=== PATIENT | male | born 1940 | race Caucasian/White ===

== ENCOUNTER → 2018-03-25 | Outpatient (CLI) | payer MEDICARE, OTHER ==
[~2018-03-25] MED LIST: ALLO100 PO; ASPI81CH PO; B-12250 MCG; BENZ100A PO; BUDE200IP; BUPR100; BUPR150ER PO; Bentyl10 MG; ESCI5 PO; ESOM20; EZET10-20; EZET10-20 PO; FISH1000 PO; FORM12IH; Fibercon625 MG PO; HYDACE5 PO; LAVAP17G PO; LORA.5 PO; LORA10ER; LOSA25 PO; MULVITMIND PO; MULVITMINF PO; NOVAFERRUM 5050 MG PO; OMEG1CAP30; ONDA8 PO; OXYACE5T PO; Oxycodone-Apap1 EAC3 PO; PRED20 PO; PROC10 PO; Prednisone50 MG PO; RANI150; Robaxin500 MG PO; TRIA55OI; TRIA80TC; TRIAOIA; VERAPAMIL PO; ZAFI20
== END | disposition home or self-care (01) ==
LOC: LAB SHORT 10:25 → LAB EV 10:25
DX: L03.032 Cellulitis of left toe (principal)
CPT/HCPCS: 87070; 87077; 87147; 87186; 87205

== ENCOUNTER → 2020-09-18 | Outpatient (CLI) | payer MEDICARE, OTHER ==
[~2020-09-18] MED LIST changes: +PLAVIX75 MG
[2020-09-18 14:31] LABS: Source, Urine Clean Catch
[2020-09-18 15:44] LABS: Appearance, Urine Clear (Clear); Bilirubin, Urine Neg (Neg); Blood, Urine Neg (Neg); Color, Urine Yellow (P-Yellow); Glucose Qualitative, Urine Neg (Neg); Ketones, Urine Neg (Neg); Leukocyte Esterase, Urine Neg (Neg); Nitrite, Urine Neg (Neg); Protein, Urine Neg (Neg); Urobilinogen, Urine NORM (Normal)
== END | disposition home or self-care (01) ==
LOC: LAB SHORT 11:08 → LAB 11:08 → EDSTATUS 09-17 16:05 → LAB FUT 09-17 16:05
PROVIDERS: Internal Medicine
DX: N18.31 Chronic kidney disease, stage 3a (principal)
CPT/HCPCS: 81003

== ENCOUNTER 2020-11-26 13:45 | Day surgery (SDC) | payer MEDICARE, OTHER ==
[~2020-11-26] VITALS: Ht 177.8 cm; Wt 78.4 kg
[2020-11-26] MEDS ORDERED: BREO ELLIPTA 21 EAC1 IH (14:15)
== END 2020-11-26 17:00 | disposition home or self-care (01) ==
LOC: ORSCSDS 13:45
PROVIDERS: Podiatrist Foot & Ankle Surgery
PROC: 0SGM04Z Fusion of Right Metatarsal-Phalangeal Joint with Internal Fixation Device, Open Approach (ICD-10-PCS; principal; 2020-11-26 15:45)
DX: M20.11 Hallux valgus (acquired), right foot (principal); M20.5X1 Other deformities of toe(s) (acquired), right foot; M79.671 Pain in right foot; I10 Essential (primary) hypertension; I48.91 Unspecified atrial fibrillation; Z79.01 Long term (current) use of anticoagulants; J45.909 Unspecified asthma, uncomplicated; Z79.899 Other long term (current) drug therapy
CPT/HCPCS: A9270; C1713; J0171; J0690; J1100; J2250; J2370; J2405; J2704; J3010; J7120

== ENCOUNTER 2021-08-20 21:55 | Emergency (ER) | payer MEDICARE, OTHER ==
[~2021-08-20] VITALS: Ht 177.8 cm; Wt 80.3 kg
[~2021-08-20 21:55] MED LIST changes: +BREO ELLIPTA 21 EAC1 IH
[2021-08-20] MEDS ORDERED: BUPR75 (22:07)
[2021-08-20] MEDS ORDERED: Norco 5-325 Ta1 EACH PO (23:49)
== END 2021-08-20 23:55 | disposition home or self-care (01) ==
LOC: ER 21:55
DX: S42.201A Unspecified fracture of upper end of right humerus, initial encounter for closed fracture (principal); I10 Essential (primary) hypertension; J45.909 Unspecified asthma, uncomplicated; Z87.891 Personal history of nicotine dependence; Z79.899 Other long term (current) drug therapy; W18.30XA Fall on same level, unspecified, initial encounter
CPT/HCPCS: 73030; 96374; 96375; 99283-25; A9270; J2405; J3010

== ENCOUNTER 2021-11-18 12:57 | Day surgery (SDC) | payer MEDICARE, OTHER ==
[~2021-11-18] VITALS: Ht 177.8 cm; Wt 78.0 kg
[~2021-11-18 12:57] MED LIST changes: +BUPR75; +Norco 5-325 Ta1 EACH PO
== END 2021-11-18 14:52 | disposition home or self-care (01) ==
LOC: ORSCSDS 12:57
PROVIDERS: Internal Medicine Gastroenterology
PROC: 0DB58ZX Excision of Esophagus, Via Natural or Artificial Opening Endoscopic, Diagnostic (ICD-10-PCS; principal; 2021-11-18 14:15)
PROC: 0D757ZZ Dilation of Esophagus, Via Natural or Artificial Opening (ICD-10-PCS; principal; 2021-11-18 14:15)
DX: K22.70 Barrett's esophagus without dysplasia (principal); R13.10 Dysphagia, unspecified; K44.9 Diaphragmatic hernia without obstruction or gangrene; I10 Essential (primary) hypertension; Z87.891 Personal history of nicotine dependence; Z79.899 Other long term (current) drug therapy
CPT/HCPCS: 88305; J2704; J7120

== ENCOUNTER → 2022-05-27 | Outpatient (CLI) | payer MEDICARE, OTHER ==
[2022-05-27 11:45] LABS: BASOPHILS ABSOLUTE AUTO 0.05 K/mm3 (0.00-0.23); BASOPHILS PERCENT AUTO 1 % (0-2); EOSINOPHILS ABSOLUTE AUTO 0.73 K/mm3 (0.00-0.68); EOSINOPHILS PERCENT AUTO 7 % (0-6); Hematocrit 39.6 % (37.0-53.0); Hemoglobin 12.8 g/dL (13.5-17.5); IMMATURE GRAN ABSOLUTE AUTO 0.04 K/mm3 (0.00-0.10); IMMATURE GRAN PERCENT AUTO 0 % (0-1); LYMPHOCYTES ABSOLUTE AUTO 2.97 K/mm3 (0.84-5.20); LYMPHOCYTES PERCENT AUTO 28 % (21-46); MONOCYTES ABSOLUTE AUTO 0.94 K/mm3 (0.16-1.47); MONOCYTES PERCENT AUTO 9 % (4-13); Mean Corpuscular HGB 31.2 pg (26.0-34.0); Mean Corpuscular HGB Conc 32.3 g/dL (31.5-36.5); Mean Corpuscular Volume 97 fL (80-100); Mean Platelet Volume 10.3 fL (9.1-12.4); NEUTROPHILS ABSOLUTE AUTO 5.72 K/mm3 (1.96-9.15); NEUTROPHILS PERCENT AUTO 55 % (41-73); Platelet Count 261 K/mm3 (150-400); RDW Coefficient Variation 14.6 % (11.7-14.2); RDW Standard Deviation 51.6 fL (35.1-46.3); White Blood Cell Count 10.45 K/mm3 (4.00-11.30)
== END | disposition home or self-care (01) ==
LOC: LAB SHORT 11:05 → LAB 11:05
PROVIDERS: Registered Nurse Oncology
DX: N18.9 Chronic kidney disease, unspecified (principal); D63.1 Anemia in chronic kidney disease; M81.0 Age-related osteoporosis without current pathological fracture; C82.93 Follicular lymphoma, unspecified, intra-abdominal lymph nodes
CPT/HCPCS: 83615; 85025

== ENCOUNTER → 2023-11-12 | Outpatient (CLI) | payer MEDICARE, OTHER ==
[~2023-11-12] MED LIST changes: +HYDR1TAB94 PO; +Naprosyn500 MG PO
[2023-11-12 15:31] LABS: BASOPHILS ABSOLUTE AUTO 0.07 K/mm3 (0.00-0.23); BASOPHILS PERCENT AUTO 1 % (0-2); EOSINOPHILS ABSOLUTE AUTO 0.51 K/mm3 (0.00-0.68); EOSINOPHILS PERCENT AUTO 4 % (0-6); Hematocrit 42.1 % (37.0-53.0); Hemoglobin 13.6 g/dL (13.5-17.5); IMMATURE GRAN ABSOLUTE AUTO 0.06 K/mm3 (0.00-0.10); IMMATURE GRAN PERCENT AUTO 0 % (0-1); LYMPHOCYTES ABSOLUTE AUTO 2.59 K/mm3 (0.84-5.20); LYMPHOCYTES PERCENT AUTO 19 % (21-46); MONOCYTES ABSOLUTE AUTO 0.82 K/mm3 (0.16-1.47); MONOCYTES PERCENT AUTO 6 % (4-13); Mean Corpuscular HGB 30.7 pg (26.0-34.0); Mean Corpuscular HGB Conc 32.3 g/dL (31.5-36.5); Mean Corpuscular Volume 95 fL (80-100); Mean Platelet Volume 9.6 fL (9.1-12.4); NEUTROPHILS ABSOLUTE AUTO 9.66 K/mm3 (1.96-9.15); NEUTROPHILS PERCENT AUTO 71 % (41-73); Platelet Count 328 K/mm3 (150-400); RDW Coefficient Variation 14.5 % (11.7-14.2); RDW Standard Deviation 50.4 fL (35.1-46.3); Red Blood Cell Count 4.43 M/mm3 (4.30-5.90); White Blood Cell Count 13.71 K/mm3 (4.00-11.30)
[2023-11-12 15:44] LABS: Albumin, Blood 3.9 g/dL (3.4-5.0); Albumin/Globulin Ratio 0.9 (0.8-1.8); Bilirubin, Total 0.4 mg/dL (0.1-1.0); Bun/Creatinine Ratio 18.4 (12.0-20.0); Calcium, Blood 9.5 mg/dL (8.5-10.1); Creatinine, Blood 1.36 mg/dL (0.60-1.20); Globulin, Blood 4.2 g/dL (2.2-4.0); Potassium, Blood 3.9 mmol/L (3.5-5.5); Total Protein, Blood 8.1 g/dL (6.4-8.2)
== END ==
LOC: LAB SHORT 15:29
PROVIDERS: Physician Assistant
DX: R10.31 Right lower quadrant pain (principal)
CPT/HCPCS: 80053; 85025

== ENCOUNTER 2023-11-14 09:49 | Emergency (ER) | payer MEDICARE, OTHER ==
[~2023-11-14] VITALS: Ht 177.8 cm; Wt 78.5 kg
[~2023-11-14 09:49] MED LIST changes: -HYDR1TAB94 PO; -Naprosyn500 MG PO
[2023-11-14 10:23] VITALS: BP 128/80
[2023-11-14] MEDS ORDERED: Naprosyn500 MG PO ×2 (10:35→12:14)
[2023-11-14] MEDS ORDERED: HYDR1TAB94 PO ×2 (10:35→12:14)
== END 2023-11-14 10:59 | disposition home or self-care (01) ==
LOC: ER 09:49
DX: M25.551 Pain in right hip (principal); M25.552 Pain in left hip; Z79.899 Other long term (current) drug therapy; J45.909 Unspecified asthma, uncomplicated; I10 Essential (primary) hypertension; Z87.891 Personal history of nicotine dependence
CPT/HCPCS: 99283; A9270

== ENCOUNTER 2024-11-02 15:46 | Emergency (ER) | payer MEDICARE, OTHER ==
[~2024-11-02] VITALS: Ht 172.7 cm; Wt 80.3 kg
[~2024-11-02 15:46] MED LIST changes: +HYDR1TAB94 PO; +Naprosyn500 MG PO
[2024-11-02 17:04] LABS: BASOPHILS ABSOLUTE AUTO 0.07 K/mm3 (0.00-0.23); BASOPHILS PERCENT AUTO 1 % (0-2); EOSINOPHILS ABSOLUTE AUTO 0.41 K/mm3 (0.00-0.68); EOSINOPHILS PERCENT AUTO 3 % (0-6); Hematocrit 37.9 % (37.0-53.0); Hemoglobin 12.6 g/dL (13.5-17.5); IMMATURE GRAN ABSOLUTE AUTO 0.05 K/mm3 (0.00-0.10); IMMATURE GRAN PERCENT AUTO 0 % (0-1); LYMPHOCYTES ABSOLUTE AUTO 2.44 K/mm3 (0.84-5.20); LYMPHOCYTES PERCENT AUTO 19 % (21-46); MONOCYTES ABSOLUTE AUTO 0.85 K/mm3 (0.16-1.47); MONOCYTES PERCENT AUTO 7 % (4-13); Mean Corpuscular HGB Conc 33.2 g/dL (31.5-36.5); Mean Corpuscular Volume 93 fL (80-100); Mean Platelet Volume 9.6 fL (9.1-12.4); NEUTROPHILS ABSOLUTE AUTO 9.16 K/mm3 (1.96-9.15); NEUTROPHILS PERCENT AUTO 71 % (41-73); Platelet Count 280 K/mm3 (150-400); RDW Coefficient Variation 13.8 % (11.7-14.2); RDW Standard Deviation 47.3 fL (35.1-46.3); Red Blood Cell Count 4.07 M/mm3 (4.30-5.90); White Blood Cell Count 12.98 K/mm3 (4.00-11.30)
[2024-11-02 17:30] LABS: Albumin, Blood 3.5 g/dL (3.4-5.0); Albumin/Globulin Ratio 0.9 (0.8-1.8); Bilirubin, Total 0.4 mg/dL (0.1-1.0); Bun/Creatinine Ratio 19.1 (12.0-20.0); Calcium, Blood 9.5 mg/dL (8.5-10.1); Creatinine, Blood 1.36 mg/dL (0.60-1.20); Globulin, Blood 3.7 g/dL (2.2-4.0); Total Protein, Blood 7.2 g/dL (6.4-8.2)
[2024-11-02 22:16] LABS: Source, Urine Clean Catch
[2024-11-02 22:29] LABS: Appearance, Urine Clear (Clear); Bilirubin, Urine Neg (Neg); Blood, Urine Neg (Neg); Color, Urine Yellow (P-Yellow); Glucose Qualitative, Urine Neg (Neg); Ketones, Urine Neg (Neg); Leukocyte Esterase, Urine Neg (Neg); Nitrite, Urine Neg (Neg); Protein, Urine Neg (Neg); Specific Gravity, Urine 1.015 (1.003-1.022); Urobilinogen, Urine NORM (Normal)
[2024-11-02 23:42] VITALS: BP 149/83
== END 2024-11-02 23:44 | disposition home or self-care (01) ==
LOC: ER 15:46
PROVIDERS: Student in an Organized Health Care Education/Training Program
DX: R55 Syncope and collapse (principal); J45.909 Unspecified asthma, uncomplicated; I10 Essential (primary) hypertension; Z79.899 Other long term (current) drug therapy; Z87.891 Personal history of nicotine dependence
CPT/HCPCS: 80053; 81003; 84484; 85025; 93005; 93010; 99284-25

== ENCOUNTER → 2025-03-06 | Outpatient (CLI) | payer MEDICARE, OTHER ==
[2025-03-06 14:15] LABS: BASOPHILS ABSOLUTE AUTO 0.04 K/mm3 (0.00-0.23); BASOPHILS PERCENT AUTO 0 % (0-2); EOSINOPHILS ABSOLUTE AUTO 0.49 K/mm3 (0.00-0.68); EOSINOPHILS PERCENT AUTO 5 % (0-6); Hematocrit 34.2 % (37.0-53.0); Hemoglobin 11.1 g/dL (13.5-17.5); IMMATURE GRAN ABSOLUTE AUTO 0.03 K/mm3 (0.00-0.10); IMMATURE GRAN PERCENT AUTO 0 % (0-1); LYMPHOCYTES ABSOLUTE AUTO 2.45 K/mm3 (0.84-5.20); LYMPHOCYTES PERCENT AUTO 27 % (21-46); MONOCYTES ABSOLUTE AUTO 1.01 K/mm3 (0.16-1.47); MONOCYTES PERCENT AUTO 11 % (4-13); Mean Corpuscular HGB 29.8 pg (26.0-34.0); Mean Corpuscular HGB Conc 32.5 g/dL (31.5-36.5); Mean Corpuscular Volume 92 fL (80-100); Mean Platelet Volume 9.8 fL (9.1-12.4); NEUTROPHILS ABSOLUTE AUTO 5.08 K/mm3 (1.96-9.15); NEUTROPHILS PERCENT AUTO 56 % (41-73); Platelet Count 232 K/mm3 (150-400); RDW Standard Deviation 54.1 fL (35.1-46.3); Red Blood Cell Count 3.72 M/mm3 (4.30-5.90)
[2025-03-06 15:28] LABS: Albumin, Blood 3.4 g/dL (3.4-5.0); Albumin/Globulin Ratio 1.1 (0.8-1.8); Bilirubin, Total 0.5 mg/dL (0.1-1.0); Calcium, Blood 8.7 mg/dL (8.5-10.1); Creatinine, Blood 1.35 mg/dL (0.60-1.20); Globulin, Blood 3.2 g/dL (2.2-4.0); Potassium, Blood 3.6 mmol/L (3.5-5.5); Thyroid Stimulating Hormone 2.04 uIU/mL (0.360-4.800); Total Protein, Blood 6.6 g/dL (6.4-8.2)
== END ==
LOC: LAB 14:06 → LAB SHORT 14:06
PROVIDERS: Family Medicine
DX: R41.3 Other amnesia (principal)
CPT/HCPCS: 80053; 82607; 82746; 84443; 85025

== ENCOUNTER 2025-10-12 14:00 | Emergency (ER) | payer MEDICARE, OTHER ==
[~2025-10-12] VITALS: Ht 175.3 cm; Wt 72.6 kg
[~2025-10-12 14:00] MED LIST changes: -LORA10ER; +LORA10ER PO; -PLAVIX75 MG; +PLAVIX75 MG PO; -ZAFI20; +ZAFI20 PO
[2025-10-12] MEDS ORDERED: Ketorolac Tromethamine 15mg Vial IM ONE ×2 (14:15→19:55)
[2025-10-12 18:51] VITALS: BP 184/90
[2025-10-12] MEDS ORDERED: PANT40 PO (19:01)
[2025-10-12] MEDS ORDERED: EZET10 PO (19:02)
[2025-10-12] MEDS ORDERED: ESCI10 PO (19:02)
[2025-10-12] MEDS ORDERED: ALBU90OI INH (19:03)
[2025-10-12] MEDS ORDERED: WIXELA 250-501 EAC1 INH (19:03)
[2025-10-12] MEDS ORDERED: ZOCOR20 MG PO (19:06)
[2025-10-12] MEDS ORDERED: DULCOLAX400 MG/5 M PO (19:06)
[2025-10-12] MEDS ORDERED: LOPERAMIDE1 MG/7.10 (19:07)
[2025-10-12] MEDS ORDERED: VITAMIN B12500 MCG PO (19:07)
[2025-10-12] MEDS ORDERED: DONEPEZIL HCL10 MG PO (19:07)
[2025-10-12] MEDS ORDERED: FOLI1 PO (19:07)
[2025-10-12] MEDS ORDERED: CALCIUM 500 MG1 EAC2 PO (19:08)
[2025-10-12] MEDS ORDERED: THERA-D2000 UNIT PO (19:08)
[2025-10-12] MEDS ORDERED: ACETAMINOPHEN500 MG PO (19:09)
[2025-10-16] MEDS ORDERED: IBUP400 PO (02:56)
== END 2025-10-12 20:14 | disposition home or self-care (01) ==
LOC: ER 14:00
DX: S62.617A Displaced fracture of proximal phalanx of left little finger, initial encounter for closed fracture (principal); S60.812A Abrasion of left wrist, initial encounter; Z79.899 Other long term (current) drug therapy; Z87.891 Personal history of nicotine dependence; Z88.8 Allergy status to other drugs, medicaments and biological substances; W18.30XA Fall on same level, unspecified, initial encounter
CPT/HCPCS: 26725; 73030; 73120; 73130; 96372-59; 99284-25; A9270; J1885

== ENCOUNTER 2025-10-14 20:23 | Inpatient (IN) | payer MEDICARE, OTHER ==
[~2025-10-14] VITALS: Ht 182.9 cm; Wt 79.6 kg
[~2025-10-14 20:23] MED LIST changes: +ACETAMINOPHEN500 MG PO; +ALBU90OI INH; +CALCIUM 500 MG1 EAC2 PO; +DONEPEZIL HCL10 MG PO; +DULCOLAX400 MG/5 M PO; +ESCI10 PO; +EZET10 PO; +FOLI1 PO; +LOPERAMIDE1 MG/7.10; +PANT40 PO; +THERA-D2000 UNIT PO; +VITAMIN B12500 MCG PO; +WIXELA 250-501 EAC1 INH; +ZOCOR20 MG PO
[2025-10-14] MEDS ORDERED: Ipratropium/Albuterol SulF 2.5-0.5MG/3 ML Amp INH PRN (20:45)
[2025-10-14 20:53] LABS: BASOPHILS ABSOLUTE AUTO 0.05 K/mm3 (0.00-0.23); BASOPHILS PERCENT AUTO 0 % (0-2); EOSINOPHILS ABSOLUTE AUTO 0.26 K/mm3 (0.00-0.68); EOSINOPHILS PERCENT AUTO 2 % (0-6); Hematocrit 38.7 % (37.0-53.0); Hemoglobin 12.7 g/dL (13.5-17.5); IMMATURE GRAN ABSOLUTE AUTO 0.08 K/mm3 (0.00-0.10); IMMATURE GRAN PERCENT AUTO 1 % (0-1); LYMPHOCYTES ABSOLUTE AUTO 2.73 K/mm3 (0.84-5.20); LYMPHOCYTES PERCENT AUTO 16 % (21-46); MONOCYTES ABSOLUTE AUTO 1.31 K/mm3 (0.16-1.47); MONOCYTES PERCENT AUTO 8 % (4-13); Mean Corpuscular HGB Conc 32.8 g/dL (31.5-36.5); Mean Corpuscular Volume 93 fL (80-100); NEUTROPHILS ABSOLUTE AUTO 13.12 K/mm3 (1.96-9.15); NEUTROPHILS PERCENT AUTO 75 % (41-73); NRBC ABSOLUTE 0.00 K/mm3 (0.00-0.02); NRBC Auto 0.0 /100 WBC (0.0-0.2); Platelet Count 238 K/mm3 (150-400); RDW Coefficient Variation 15.1 % (11.7-14.2); RDW Standard Deviation 51.9 fL (35.1-46.3)
[2025-10-14 21:11] LABS: Alanine Aminotransfer (ALT/SGP 20.0 U/L (12-78); Albumin, Blood 3.7 g/dL (3.4-5.0); Albumin/Globulin Ratio 0.9 (0.8-1.8); Anion Gap 10.0 mmol/L (3-11); Aspartate Aminotrans (AST/SGOT 13.0 U/L (12-37); Bilirubin, Total 0.6 mg/dL (0.1-1.0); Blood Urea Nitrogen 25.0 mg/dL (8-24); CO2, Blood 24.0 mmol/L (21-32); Calcium, Blood 9.3 mg/dL (8.5-10.1); Chloride, Blood 106.0 mmol/L (98-108); Creatinine, Blood 1.32 mg/dL (0.60-1.20); Globulin, Blood 3.9 g/dL (2.2-4.0); Glucose, Blood 110.0 mg/dL (70-99); Potassium, Blood 3.8 mmol/L (3.5-5.5); Sodium, Blood 136.0 mmol/L (136-145); Total Protein, Blood 7.6 g/dL (6.4-8.2)
[2025-10-14 21:31] LABS: Influenza A, PCR NEGATIVE (NEGATIVE); Influenza B, PCR NEGATIVE (NEGATIVE); Resp Syncytial Virus, PCR NEGATIVE (NEGATIVE); SARS-Cov-2 (COVID-19) PCR, MMC NEGATIVE (NEGATIVE)
[2025-10-15 01:25] LABS: Source, Urine Clean Catch
[2025-10-15 01:39] LABS: Bilirubin, Urine Neg (Neg); Glucose Qualitative, Urine Neg (Neg); Ketones, Urine Neg (Neg); Leukocyte Esterase, Urine Neg (Neg); Protein, Urine 2+ (Neg); Specific Gravity, Urine 1.010 (1.003-1.022); Urobilinogen, Urine NORM (Normal)
[2025-10-15 01:45] LABS: Color, Urine Yellow (P-Yellow)
[2025-10-15 01:46] LABS: Red Blood Cells, Urine 0-2 /hpf (0-2); White Blood Cells, Urine 0-2 /hpf (0-5)
[2025-10-15] MEDS ORDERED: Haloperidol Lactate Inj. 5 MG/ML Injection IV PRN (10:40)
[2025-10-15] MEDS ORDERED: NS 500 ML IV SCH (10:40)
[2025-10-15] MEDS ORDERED: FLU VACC TS2025(65UP)/MF59C/PF 45 MCG/0.5 ML SYRINGE IM SCH (15:40)
[2025-10-15] MEDS ORDERED: CefTRIAXone Sodium 2,000 MG in NS 100 ML IV SCH (15:47)
[2025-10-15] MEDS ORDERED: Formoterol/Mometasone MDI 5/200 mcg 13 GM INH SCH (17:20)
[2025-10-15 17:51] VITALS: BP 162/78
[2025-10-15 18:11] LABS: BASOPHILS ABSOLUTE AUTO 0.07 K/mm3 (0.00-0.23); BASOPHILS PERCENT AUTO 0 % (0-2); EOSINOPHILS ABSOLUTE AUTO 0.24 K/mm3 (0.00-0.68); EOSINOPHILS PERCENT AUTO 1 % (0-6); Hematocrit 35.2 % (37.0-53.0); Hemoglobin 11.3 g/dL (13.5-17.5); IMMATURE GRAN ABSOLUTE AUTO 0.09 K/mm3 (0.00-0.10); IMMATURE GRAN PERCENT AUTO 0 % (0-1); LYMPHOCYTES ABSOLUTE AUTO 3.60 K/mm3 (0.84-5.20); LYMPHOCYTES PERCENT AUTO 17 % (21-46); MONOCYTES ABSOLUTE AUTO 1.77 K/mm3 (0.16-1.47); MONOCYTES PERCENT AUTO 8 % (4-13); Mean Corpuscular HGB Conc 32.1 g/dL (31.5-36.5); Mean Corpuscular Volume 94 fL (80-100); NEUTROPHILS ABSOLUTE AUTO 16.04 K/mm3 (1.96-9.15); NEUTROPHILS PERCENT AUTO 74 % (41-73); NRBC ABSOLUTE 0.00 K/mm3 (0.00-0.02); NRBC Auto 0.0 /100 WBC (0.0-0.2); Platelet Count 194 K/mm3 (150-400); RDW Coefficient Variation 15.3 % (11.7-14.2); RDW Standard Deviation 53.6 fL (35.1-46.3)
--- NOTE | 2025-10-15 18:11 | NUR ---
Admission and Summary Received patient from the ED, patient somulent. patient has abrasions to left elbow, left knee and right knee, has a brace on left wrist, IV to right FA infusing LR at 100. Patient is confused and unable to answer any questions appropriately. Attempted to put on bed madrigal and urinal, patient did not tolerate well. Has sitter at beside due to history in the ER of roaming and getting out of bed. History of fall x2 days ago, has MRI scheduled, waiting for them to come to get him, Patient is NPO at this time
[2025-10-15 18:27] LABS: Anion Gap 10.0 mmol/L (3-11); Blood Urea Nitrogen 27.0 mg/dL (8-24); CO2, Blood 21.0 mmol/L (21-32); Calcium, Blood 8.5 mg/dL (8.5-10.1); Chloride, Blood 108.0 mmol/L (98-108); Creatinine, Blood 1.27 mg/dL (0.60-1.20); Glucose, Blood 98.0 mg/dL (70-99); Potassium, Blood 3.7 mmol/L (3.5-5.5); Sodium, Blood 135.0 mmol/L (136-145)
[2025-10-15 19:34] VITALS: BP 172/92
[2025-10-15 20:49] VITALS: BP 158/78
[2025-10-16] MEDS ORDERED: IBUP400 PO ×2 (02:56)
[2025-10-16] MEDS ORDERED: B-12500 MC2 PO (02:59)
[2025-10-16] MEDS ORDERED: WIXELA 250-501 EAC1 INH (03:02)
[2025-10-16 03:38] VITALS: BP 152/79
[2025-10-16 05:19] LABS: BASOPHILS ABSOLUTE AUTO 0.05 K/mm3 (0.00-0.23); BASOPHILS PERCENT AUTO 0 % (0-2); EOSINOPHILS ABSOLUTE AUTO 0.14 K/mm3 (0.00-0.68); EOSINOPHILS PERCENT AUTO 1 % (0-6); Hematocrit 33.0 % (37.0-53.0); Hemoglobin 10.8 g/dL (13.5-17.5); IMMATURE GRAN ABSOLUTE AUTO 0.09 K/mm3 (0.00-0.10); IMMATURE GRAN PERCENT AUTO 1 % (0-1); LYMPHOCYTES ABSOLUTE AUTO 2.04 K/mm3 (0.84-5.20); LYMPHOCYTES PERCENT AUTO 10 % (21-46); MONOCYTES ABSOLUTE AUTO 1.50 K/mm3 (0.16-1.47); MONOCYTES PERCENT AUTO 8 % (4-13); Mean Corpuscular HGB Conc 32.7 g/dL (31.5-36.5); Mean Corpuscular Volume 93 fL (80-100); NEUTROPHILS ABSOLUTE AUTO 15.84 K/mm3 (1.96-9.15); NEUTROPHILS PERCENT AUTO 81 % (41-73); NRBC ABSOLUTE 0.00 K/mm3 (0.00-0.02); NRBC Auto 0.0 /100 WBC (0.0-0.2); Platelet Count 201 K/mm3 (150-400); RDW Coefficient Variation 14.9 % (11.7-14.2); RDW Standard Deviation 51.1 fL (35.1-46.3)
[2025-10-16 05:38] LABS: Anion Gap 11.0 mmol/L (3-11); Blood Urea Nitrogen 22.0 mg/dL (8-24); CO2, Blood 22.0 mmol/L (21-32); Calcium, Blood 8.3 mg/dL (8.5-10.1); Chloride, Blood 106.0 mmol/L (98-108); Creatinine, Blood 1.05 mg/dL (0.60-1.20); Glucose, Blood 110.0 mg/dL (70-99); Potassium, Blood 3.6 mmol/L (3.5-5.5); Sodium, Blood 135.0 mmol/L (136-145)
[2025-10-16 07:20] VITALS: BP 155/76
--- NOTE | 2025-10-16 07:43 | NUR ---
SHIFT SUMMARY Patient is Alert and Oriented x2-3, but confused and impulsive. Hard of hearing and wears a hearing aid on the right ear. The patient is on room air with continuous pulse oximetry, with no acute change observed. The patient complained of pain and was medicated per eMAR. LR is infusing at 100 mL/hr. Patient is NPO except for PO medications. The patient had several soft bowel movements and was repositioned throughout the shift. Safety measures are in place (bed locked, alarm on, in lowest position, call light within reach).
[2025-10-16] MEDS ORDERED: NS 250 ML IV PRN (08:10)
[2025-10-16] MEDS ORDERED: Enoxaparin 40 MG/0.4 ML SYR SC SCH (09:00)
--- NOTE | 2025-10-16 11:16 | NUR ---
RN NOTE: RETURNED CALL & SPOKE TO SARAY AT [facility] REGARDING PT UPDATE.
[2025-10-16 11:42] LABS: Ferritin, Serum 160.0 ng/mL (26-388); Total Iron Binding Capacity 243.0 ug/dL (250-450)
[2025-10-16] MEDS ORDERED: Sod Ferric Gluc Complx/Sucrose 125 MG in NS 100 ML IV SCH (12:00)
[2025-10-16 15:40] VITALS: BP 128/77
--- NOTE | 2025-10-16 18:00 | NUR ---
RN SHIFT SUMMARY: FULL CODE A&Ox3/4, CONFUSED AT TIMES. PT UP TO CHAIR MOST OF THE DAY WITH BED ALARM ON. UNSTEADY GAIT AND NEEDS REMINDERS OF THAT. 2 PERSON ASSIST WITH FWW AND GAIT BELT TO STAND/PIVOT. MEDICATED PER EMAR. DIET CHANGED FROM NPO TO TOLERATED. IV IN LEFT FOREARM. HAD A SOFT BM DURING THIS SHIFT ON THE BEDSIDE COMODE. BED IN LOWEST POSITION AND CALL LIGHT WITHIN REACH.
[2025-10-16 19:33] VITALS: BP 121/67
[2025-10-17 04:59] LABS: BASOPHILS ABSOLUTE AUTO 0.04 K/mm3 (0.00-0.23); BASOPHILS PERCENT AUTO 0 % (0-2); EOSINOPHILS ABSOLUTE AUTO 0.28 K/mm3 (0.00-0.68); EOSINOPHILS PERCENT AUTO 2 % (0-6); Hematocrit 32.6 % (37.0-53.0); Hemoglobin 10.6 g/dL (13.5-17.5); IMMATURE GRAN ABSOLUTE AUTO 0.08 K/mm3 (0.00-0.10); IMMATURE GRAN PERCENT AUTO 1 % (0-1); LYMPHOCYTES ABSOLUTE AUTO 2.00 K/mm3 (0.84-5.20); LYMPHOCYTES PERCENT AUTO 15 % (21-46); MONOCYTES ABSOLUTE AUTO 1.41 K/mm3 (0.16-1.47); MONOCYTES PERCENT AUTO 10 % (4-13); Mean Corpuscular HGB Conc 32.5 g/dL (31.5-36.5); Mean Corpuscular Volume 92 fL (80-100); NEUTROPHILS ABSOLUTE AUTO 9.78 K/mm3 (1.96-9.15); NEUTROPHILS PERCENT AUTO 72 % (41-73); NRBC ABSOLUTE 0.00 K/mm3 (0.00-0.02); NRBC Auto 0.0 /100 WBC (0.0-0.2); Platelet Count 225 K/mm3 (150-400); RDW Coefficient Variation 14.6 % (11.7-14.2); RDW Standard Deviation 50.2 fL (35.1-46.3)
[2025-10-17 05:32] LABS: Anion Gap 9.0 mmol/L (3-11); Blood Urea Nitrogen 25.0 mg/dL (8-24); CO2, Blood 22.0 mmol/L (21-32); Calcium, Blood 8.5 mg/dL (8.5-10.1); Chloride, Blood 106.0 mmol/L (98-108); Creatinine, Blood 1.24 mg/dL (0.60-1.20); Glucose, Blood 109.0 mg/dL (70-99); Potassium, Blood 3.4 mmol/L (3.5-5.5); Sodium, Blood 134.0 mmol/L (136-145)
--- NOTE | 2025-10-17 05:59 | NUR ---
SHIFT SUMMARY MENTATION HAS SEEMED TO CLEAR SOMEWHAT THIS EVENING DESPITE SEVERAL IMPULSIVE BED EXITS TO UTILIZE RESTROOM. PT REDIRECTS WELL, COOPERATIVE WITH CARE, A&OX3-4 WITH OCCASIONAL SITUATIONAL CONFUSION. INCONTINENT URINATION EPISODES FOLLOWED BY ATTEMPTS TO STAND AT BEDSIDE TO URINATE. PT DID PASS 1 SMALL HARD BM THIS AM. WBC COUNT DOWNTRENDS, NO OBVIOUS VISUALIZED SOURCE FOR AN INFECTION BY THIS RN. L 5TH PROXIMAL PHALANX FRACTURE IN VELCRO WRIST BRACE c IMMOBILIZED L 4TH AND 5TH DIGITS. CAUTION TO PT'S R 6TH RIB FRACTURE. WELL-HEALING SCATTERED BRUISES AND ABRASIONS. IV PATENT IN LAC. SPO2 REMAINS >=91% ON RA.
[2025-10-17 07:55] VITALS: BP 155/69
[2025-10-17 15:55] VITALS: BP 126/69
--- NOTE | 2025-10-17 18:01 | NUR ---
RN SHIFT SUMMARY: FULL CODE A&Ox4, PT UP TO CHAIR MOST OF THE DAY. LESS FREQUENT REMINDERS ON CALLING FOR ASSIST WHEN TRANSFERRING. NOW 1 PERSON ASSIST WITH FWW & GAIT BELT. MEDICATED PER EMAR. USES URINAL AT BEDSIDE. DIET REGULAR. BED IN LOWEST POSITION & CALL LIGHT WITHIN REACH.
[2025-10-17 20:41] VITALS: BP 149/84
[2025-10-18 03:39] VITALS: BP 136/79
--- NOTE | 2025-10-18 04:41 | NUR ---
ALERT AND ORIENTED TO HIMSELF ONLY. PT WAS A POOR HISOTRIAN, WAS NOT ABLE TO OBTAIN CLEAR ANSWER FROM THE PT. PER REPORT, PT HAD R RIB AND LEFT 5TH DIGIT FRACTURE 2 WEEKS AGO. BEGINNING OF THE SHIFT, THE TEAM HAD GIVEN PT TYLENOL FOR PAIN AND SCHEDULED MEDS, PT COMPLIED W/O ANY DIFFICULTIES. DURING THE NIGHT, PT STARTED TO GET MORE CONFUSED AND TRIED TO JUMP OUT OF THE BED MULTIPLE TIMES. SEROQUEL PRN WAS GIVEN. CURRENTLY PT IS LYING IN HIS BED, BED ALARM IS ON, CALL GARCÍA WITHIN THE REACH, BED TO THE LOWEST AND HOURLY ROUND IS IMPLEMENTED FOR SAFETY. THERE WAS NO SIGN OF ACUTE DISTRESS, ACUTE CHANGES, AND BEHAVIORAL CHANGES NOTED DURING THE SHIFT. WILL CONTINUE TO MONITOR.
[2025-10-18 05:29] LABS: BASOPHILS ABSOLUTE AUTO 0.04 K/mm3 (0.00-0.23); BASOPHILS PERCENT AUTO 0 % (0-2); EOSINOPHILS ABSOLUTE AUTO 0.25 K/mm3 (0.00-0.68); EOSINOPHILS PERCENT AUTO 2 % (0-6); Hematocrit 36.0 % (37.0-53.0); Hemoglobin 11.9 g/dL (13.5-17.5); IMMATURE GRAN ABSOLUTE AUTO 0.06 K/mm3 (0.00-0.10); IMMATURE GRAN PERCENT AUTO 1 % (0-1); LYMPHOCYTES ABSOLUTE AUTO 2.41 K/mm3 (0.84-5.20); LYMPHOCYTES PERCENT AUTO 18 % (21-46); MONOCYTES ABSOLUTE AUTO 1.48 K/mm3 (0.16-1.47); MONOCYTES PERCENT AUTO 11 % (4-13); Mean Corpuscular HGB Conc 33.1 g/dL (31.5-36.5); Mean Corpuscular Volume 94 fL (80-100); NEUTROPHILS ABSOLUTE AUTO 8.88 K/mm3 (1.96-9.15); NEUTROPHILS PERCENT AUTO 68 % (41-73); NRBC ABSOLUTE 0.00 K/mm3 (0.00-0.02); NRBC Auto 0.0 /100 WBC (0.0-0.2); Platelet Count 265 K/mm3 (150-400); RDW Coefficient Variation 14.8 % (11.7-14.2); RDW Standard Deviation 51.4 fL (35.1-46.3)
[2025-10-18 05:57] LABS: Anion Gap 10.0 mmol/L (3-11); Blood Urea Nitrogen 28.0 mg/dL (8-24); CO2, Blood 22.0 mmol/L (21-32); Calcium, Blood 8.9 mg/dL (8.5-10.1); Chloride, Blood 108.0 mmol/L (98-108); Creatinine, Blood 1.23 mg/dL (0.60-1.20); Glucose, Blood 105.0 mg/dL (70-99); Potassium, Blood 3.5 mmol/L (3.5-5.5); Sodium, Blood 136.0 mmol/L (136-145)
[2025-10-18 07:51] VITALS: BP 133/71
[2025-10-18] MEDS ORDERED: FERSU300 PO (10:48)
[2025-10-18] MEDS ORDERED: Amlodipine Bes2.5 MG PO (10:48)
--- NOTE | 2025-10-18 12:00 | NUR ---
DISCHARGE NOTE PT EDUCATED ON NEW MEDS SINCE HE SEEMS WITH IT THIS MORNING. PACKET PROVIDED FOR [facility] FROM CASE MANAGEMENT. CASE MANAGEMENT UPDATED SON ON DISCHARGE. [facility] PICKED UP PT AT [facility] AT 1150. PT WAS ESCORTED DOWN VIA WHEELCHAIR BY DIRECTOR OF FLIGHT OPERATIONS AND WAITED FOR RIDE WITH HIM UNTIL ARRIVAL RIDE WAS SCHEDULED FOR 1130. IV REMOVED PRIOR TO DC. NO CONCERNS PRIOR TO DC. LEFT HAND BRACE ON PT. ALL BELONGINGS GATHERED AND SENT HOME WITH PT. WATCH AND LEFT HEARING AID IN ROOM ONLY. EMERGENCY LANYARD FROM [facility] WITH PATIENT. CLOTHES ARE SOILED, PT SENT HOME IN GOWN AND PAJAMA PANTS.
== END 2025-10-18 11:54 | disposition home health service (06) | DRG 562 ==
LOC: ER 20:23 → MEDS 20:24
PROVIDERS: Emergency Medicine; ADMIT Student in an Organized Health Care Education/Training Program
PROC: 2W3FX1Z Immobilization of Left Hand using Splint (ICD-10-PCS; principal; 2025-10-14)
DX: S62.617A Displaced fracture of proximal phalanx of left little finger, initial encounter for closed fracture (principal); G93.41 Metabolic encephalopathy; D50.9 Iron deficiency anemia, unspecified; J45.909 Unspecified asthma, uncomplicated; K21.9 Gastro-esophageal reflux disease without esophagitis; E78.5 Hyperlipidemia, unspecified; I12.9 Hypertensive chronic kidney disease with stage 1 through stage 4 chronic kidney disease, or unspecified chronic kidney disease; N18.30 Chronic kidney disease, stage 3 unspecified; G30.9 Alzheimer's disease, unspecified; F02.80 Dementia in other diseases classified elsewhere, unspecified severity, without behavioral disturbance, psychotic disturbance, mood disturbance, and anxiety; D63.1 Anemia in chronic kidney disease; S09.90XA Unspecified injury of head, initial encounter; R29.6 Repeated falls; I45.10 Unspecified right bundle-branch block; S60.812A Abrasion of left wrist, initial encounter; K22.70 Barrett's esophagus without dysplasia; Z87.891 Personal history of nicotine dependence; Z98.890 Other specified postprocedural states; Z79.02 Long term (current) use of antithrombotics/antiplatelets; Z79.51 Long term (current) use of inhaled steroids; Z79.899 Other long term (current) drug therapy; W18.30XA Fall on same level, unspecified, initial encounter; M25.512 Pain in left shoulder
CPT/HCPCS: 36415; 62270; 70450; 70551; 71260; 73130; 80048; 80053; 81001; 82607; 82728; 82746; 83540; 83550; 83605; 84145; 84484; 85025; 87637; 93005; 93010; 94640; 94664; 94762; 96361-59; 96365-59; 96375-59; 97110; 97116; 97161; 97165; 97530; 97535; 99285-25; A9270; G0378; J0696; J1630; J1650; J2916; J7030; J7050; J7120; Q9967